=== PATIENT | female | born 1960 | race Caucasian/White ===

== ENCOUNTER → 2017-07-26 | Day surgery (SDC) | payer BC ==
[~2017-07-26] MED LIST: LIDOCAINE 2% PF Vial for OR 5 ML VIAL.; PROPOFOL 40 ML IV
[2017-07-26] MEDS: IV RINGERS,LACTATED 1000ML 1,000 ML IV (08:02)
== END | disposition home or self-care (01) ==
LOC: SURG 07:18
DX: Z12.11 Encounter for screening for malignant neoplasm of colon (principal); K64.0 First degree hemorrhoids; K57.30 Diverticulosis of large intestine without perforation or abscess without bleeding; J44.9 Chronic obstructive pulmonary disease, unspecified; E78.00 Pure hypercholesterolemia, unspecified; I10 Essential (primary) hypertension; K21.9 Gastro-esophageal reflux disease without esophagitis; F17.200 Nicotine dependence, unspecified, uncomplicated; Z90.710 Acquired absence of both cervix and uterus; Z87.442 Personal history of urinary calculi; Z87.39 Personal history of other diseases of the musculoskeletal system and connective tissue; Z88.0 Allergy status to penicillin; Z79.82 Long term (current) use of aspirin; Z98.890 Other specified postprocedural states; Z82.49 Family history of ischemic heart disease and other diseases of the circulatory system
CPT/HCPCS: 45378; J2704

== ENCOUNTER → 2020-12-22 | Outpatient (CLI) | payer BC, OTHER ==
[2017-07-26 09:10] VITALS: BP 116/72
[~2020-12-22] MED LIST changes: +ASPI-482 PO; +BUDE10.2 IH; +CRESTOR40 MG PO; +ESOM40CA PO; +FLUT1DIS5 IH; -LIDOCAINE 2% PF Vial for OR 5 ML VIAL.; +LISI-517 PO; +MULT-445 PO; +MUPI22OI2 TP; +OMEG-57 PO; -PROPOFOL 40 ML IV
== END ==
LOC: PF 07:46
PROVIDERS: ATTEND Surgery
DX: J43.9 Emphysema, unspecified (principal)
CPT/HCPCS: 94010; 94729

== ENCOUNTER → 2021-01-23 | Outpatient (CLI) | payer BC, OTHER ==
[2017-07-26 09:10] VITALS: BP 116/72
--- NOTE | 2021-01-23 10:40 | RAD ---
MR LUMBAR SPINE WO [id number] Date: 01/23/2021 9:35 AM Indication: CHRONIC LOW BACK PAIN Comparison: 09/29/2014. Technique: Multi-planar multi-weighted magnetic resonance imaging of the lumbar spine was performed w ithout intravenous contrast using the standard lumbar spine protocol. FINDINGS: The lumbar spine is normally aligned. No acute fracture. Mild multilevel degenerative disc desiccatio n and disc height loss. Bone marrow signal intensity is normal. The conus terminates at a normal level. No abnormal signal is seen within the visualized distal spina l cord. No clumping of intrathecal nerve roots. No soft tissue abnormality in the visualized abdomen or pelvis. T12-L1: No disc bulge. No facet arthropathy. No significant spinal stenosis or neural foraminal narro wing. L1-L2: No disc bulge. No facet arthropathy. No significant spinal stenosis or neural foraminal narrow ing. L2-L3: No disc bulge. No facet arthropathy. No significant spinal stenosis or neural foraminal narrow ing. L3-L4: Disc bulge. Mild facet arthropathy. No significant spinal stenosis. Mild left neural foraminal narrowing. L4-L5: Disc bulge. Mild facet arthropathy. No significant spinal stenosis. Mild lateral recess narrow ing. Mild bilateral neural foraminal narrowing. L5-S1: Disc bulge. Mild right and moderate left facet arthropathy. Synovial cyst measuring 4 mm proje cts into the left dorsal epidural space from the left facet joint. Mild spinal stenosis. No neural fo raminal narrowing. IMPRESSION: Mild lumbar spondylosis, detailed level by level above. Electronically signed by: Javed Calabrese MD (01/23/2021 10:38 AM) [id number]
== END ==
LOC: MRI 10:00
PROVIDERS: ATTEND Family Medicine
DX: M47.817 Spondylosis without myelopathy or radiculopathy, lumbosacral region (principal); M48.07 Spinal stenosis, lumbosacral region; M71.38 Other bursal cyst, other site
CPT/HCPCS: 72148

== ENCOUNTER 2021-10-17 21:23 | Observation (INO) | payer BC ==
[~2021-10-17] VITALS: Ht 157.5 cm; Wt 58.8 kg
[~2021-10-17 21:23] MED LIST changes: -LISI-517 PO; +LISI5TAB15 PO
[2021-10-17] MEDS ORDERED: OMEG1CAP6 PO (21:52)
[2021-10-17] MEDS ORDERED: BUTA1TAB23 PO (21:52)
[2021-10-17] MEDS ORDERED: ESCITALOPRAM OX10 MG PO (21:52)
[2021-10-17] MEDS ORDERED: BUDE10.2 IH (21:52)
[2021-10-17] MEDS ORDERED: ASPI-630 PO (21:52)
[2021-10-17] MEDS ORDERED: CRESTOR40 MG PO (21:52)
[2021-10-17] MEDS ORDERED: ALBU2.5V8 IH (21:52)
[2021-10-17] MEDS ORDERED: ZOLP10TA PO (21:52)
[2021-10-17] MEDS ORDERED: ASCO100T4 PO (21:52)
[2021-10-17] MEDS ORDERED: DICL20GE TP (21:52)
[2021-10-17] MEDS ORDERED: DIPH25CA58 PO (21:52)
[2021-10-17] MEDS ORDERED: AMLO-187 PO (21:52)
[2021-10-17] MEDS ORDERED: ESOM40CA PO (21:52)
[2021-10-17] MEDS ORDERED: REPATHA (21:53)
[2021-10-17] MEDS ORDERED: ACET325T9 PO (22:00)
[2021-10-17] MEDS ORDERED: diphenhydrAMINE HCL 25 MG CAPSULE PO PRN (22:10)
[2021-10-17] MEDS ORDERED: NITROGLYCERIN SUBLINGUAL 0.4 MG BOTTLE OF 25. SL PRN (22:15)
[2021-10-17] MEDS ORDERED: ZOLPIDEM 5 MG TABLET. PO PRN (22:15)
[2021-10-17] MEDS ORDERED: HEPARIN 25,000UTS/250ML PREMIX 250 ML IV PRN (22:30)
[2021-10-17] MEDS ORDERED: DICLOFENAC SODIUM 1% TOPICAL GEL 100GM TUBE. TP SCH (22:30)
[2021-10-17] MEDS ORDERED: HEPARIN for IV BOLUS 10,000 UNIT/10 ML VIAL. IV PRN (22:30)
[2021-10-17 23:00] VITALS: BP 186/75
[2021-10-17] MEDS: ACETAMINOPHEN 325 MG TABLET. PO PRN (23:04)
[2021-10-18 02:10] LABS: BASO % 0 % (0-3); EOS % 0 % (0-3); HEMOGLOBIN 12.7 g/dL (12.0-15.5); LYMPH # 1.1 x10^3/uL (1.0-4.8); LYMPH % 15 % (24-48); MEAN CORPUSCULAR HEMOGLOBIN 32 pg (25-35); MEAN CORPUSCULAR HGB CONC 34 g/dL (31-37); MEAN CORPUSCULAR VOLUME 94 fL (79-100); MONO # 0.1 x10^3/uL (0.0-1.1); MONO % 2 % (0-9); NEUT # 5.9 x10^3/uL (1.8-7.7); NEUT % 83 % (31-73); PLATELET COUNT 196 x10^3/uL (140-400); RED BLOOD COUNT 3.92 x10^6/uL (3.50-5.40); RED CELL DISTRIBUTION WIDTH 12.9 % (11.5-14.5); WHITE BLOOD COUNT 7.1 x10^3/uL (4.0-11.0)
[2021-10-18 02:30] LABS: CALCIUM 9.6 mg/dL (8.5-10.1); CREATININE 1.6 mg/dL (0.6-1.0); GFR 32.8; POTASSIUM 3.3 mmol/L (3.5-5.1)
[2021-10-18] MEDS ORDERED: DICLOFENAC SODIUM 1% TOPICAL GEL 100GM TUBE. TP PRN (02:30)
[2021-10-18 03:00] VITALS: BP 159/70
[2021-10-18 07:30] VITALS: BP 143/71
[2021-10-18] MEDS ORDERED: PANTOPRAZOLE 40 MG TABLET.DR. PO SCH (07:30)
[2021-10-18] MEDS: ALBUTEROL SULFATE 2.5 MG/3 ML NEBU. NEB SCH ×3 (07:42→16:12)
--- NOTE | 2021-10-18 07:53 | PDOC1 ---
History and Physical Date of Service: DOS: DATE: 10/18/21 TIME: 07:53 Chief Complaint: Chief Complain: Chest pain History of Present Illness: HPI: Patient is 61-year-old white female presented to outside emergency room yesterday due to shortness of breath and chest pain. Patient reports she has been having high blood pressures for about a week or so; high as in 220's systolic. Was recently taken off her lisinopril due to kidney function and her Norvasc increased from 5-10. Blood pressure here in the 150's systolic. He reports this is obviously put a lot of stress on her worrying about her blood pressure and she also recently had to place her mother in a snf causing her further stress in her life. Yesterday started having a pressure-like sensation on her chest and went to outside emergency room. What she described to me sounds more like a panic attack. However she did have a mildly elevated troponin in the outside emergency room and was thus transferred down here for cardiac evaluation. I saw the patient this morning she was resting in bed chest pain-free. Past Medical/Surgical History: PMH/PSH: COPD hypertension hyperlipidemia GERD Allergies: Allergies: Coded Allergies: Penicillins (Verified Allergy, Intermediate, Hives, 07/26/17) Family History: Family History: Hypertension Social History: Social History: Daily tobacco smoker. Occasional alcohol use no drug use Current Medications: Current Medications Current Medications Acetaminophen (Tylenol) 650 mg PRN Q4HRS PRN PO MILD PAIN / TEMP > 100.3'F Last administered on 10/17/21at 23:04; Start 10/17/21 at 22:00 Amlodipine Besylate (Norvasc) 10 mg DAILY PO ; Start 10/18/21 at 09:00 Aspirin (Ecotrin) 81 mg DAILY08 PO ; Start 10/18/21 at 08:00 Diclofenac Sodium (Voltaren) 1 stephanie Q4HRS W/A TP Last administered on 10/17/21at 23:04; Start 10/17/21 at 22:30; Stop 10/18/21 at 02:32; Status DC Diphenhydramine HCl (Benadryl) 25 mg PRN QID PRN PO ITCHING; Start 10/17/21 at 22:10 Ascorbic Acid (Vitamin C) 500 mg DAILY PO ; Start 10/18/21 at 09:00 Albuterol Sulfate (Ventolin Neb Soln) 2.5 mg RTQID NEB Last administered on 10/18/21at 07:42; Start 10/18/21 at 08:00 Citalopram Hydrobromide (CeleXA) 20 mg DAILY PO ; Start 10/18/21 at 09:00 Pantoprazole Sodium (Protonix) 40 mg DAILYAC PO Last administered on 10/18/21at 06:09; Start 10/18/21 at 07:30 Atorvastatin Calcium (Lipitor) 80 mg DAILY PO ; Start 10/18/21 at 09:00 Zolpidem Tartrate (Ambien) 5 mg PRN QHS PRN PO INSOMNIA Last administered on 10/17/21at 23:04; Start 10/17/21 at 22:15 Nitroglycerin (Nitrostat) 0.4 mg PRN Q5MIN PRN SL CHEST PAIN; Start 10/17/21 at 22:15 Budesonide (Pulmicort) 0.5 mg RTBID NEB ; Start 10/18/21 at 08:00 Heparin Sodium/ Dextrose 250 ml @ 7.056 mls/ hr CONT PRN IV PER PROTOCOL; Start 10/17/21 at 22:30 Heparin Sodium (Porcine) (Heparin Sodium) 1,450 unit PRN Q6HRS PRN IV FOR UFH LEVEL LESS THAN 0.2; Start 10/17/21 at 22:30 Amlodipine Besylate (Norvasc) 10 mg 1X ONCE PO Last administered on 10/17/21at 23:25; Start 10/17/21 at 23:30; Stop 10/17/21 at 23:31; Status DC Diclofenac Sodium (Voltaren) 1 stephanie PRN Q4HRS PRN TP ARTHRITIS PAIN; Start 10/18/21 at 02:30 Active Scripts Active Reported Tylenol (Acetaminophen) 325 Mg Tablet 2 Tab PO PRN Q4HRS [REPATHA iNJECTION] 1 Q2WKS Ambien (Zolpidem Tartrate) 10 Mg Tablet 10 Mg PO HS PRN Benadryl (Diphenhydramine Hcl) 25 Mg Capsule 1 Cap PO QID 30 Days Amlodipine Besylate 10 Mg Tablet 10 Mg PO DAILY Voltaren Arthritis Pain (Diclofenac Sodium) 20 Gm Gel..gram. 1 Stephanie TP Q4HRS PRN Crestor (Rosuvastatin Calcium) 40 Mg Tablet 20 Tab PO DAILY Proair Hfa Inhaler (Albuterol Sulfate) 8.5 Gm Hfa.aer.ad 2 Puff IH PRN Q4-6HRS PRN 21 Days Fish Oil 1,000 Mg Capsule ([place]-3 Fatty Acids/Fish Oil) 1 Each Capsule 1 Each PO DAILY Nexium Capsule (Esomeprazole Magnesium) 40 Mg Capsule.dr 40 Mg PO DAILYAC Escitalopram Oxalate 10 Mg Tablet 1 Tab PO DAILY Nvwbjt-Boxlkpsh-Wfqk 50-325-40 (Butalb/Acetaminophen/Caffeine) Unknown Strength Tablet Unknown Dose PO Q4HRS PRN Symbicort 160-4.5 Mcg Inhaler (Budesonide/Formoterol Fumarate) 10.2 Gm Hfa.aer.ad 2 Puff IH BID Vitamin C (Ascorbic Acid) 100 Mg Tablet 1 Tab PO DAILY 30 Days Symbicort 160-4.5 Mcg Inhaler (Budesonide/Formoterol Fumarate) 10.2 Gm Hfa.aer.ad 2 Puff IH BID Multivitamins (Multivitamin) 1 Each Tablet 1 Tab PO DAILY Fish Oil + D3 Softgel ([place]-3S/Dha/Epa/Fish Oil/D3) 1 Each Capsule 1 Each PO Aspir 81 (Aspirin) 81 Mg Tablet. 1 Tab PO DAILY Advair 500-50 Diskus (Fluticasone/Salmeterol) 1 Each Disk.w.dev 1 Puff IH BID Nexium Capsule (Esomeprazole Magnesium) 40 Mg Capsule. 1 Cap PO DAILY ROS: Review of Systems Review of System Unless noted in HPI 14 point review systems is negative Physical Exam: Vital Signs: Vital Signs Date Time Temp Pulse Resp B/P (MAP) Pulse Ox O2 Delivery O2 Flow Rate FiO2 10/18/21 07:42 97 Room Air 10/18/21 03:00 98.5 69 18 159/70 (99) 98.5 Physcial Exam: GEN: No apparent distress. Alert and oriented HEENT: Normal cephalic, atraumatic, external auditory canals are patent EYES: Extraocular muscles are intact, pupil are equally round and reactive to light and accommodation MUSCULOSKELETAL: Well developed , well nourished, good range of motion ENDOCRINE: No thyromegaly was palpated LYMPHATICS: No cervical chain or axillary nodes were noted HEMATOPOIETIC: No bruising NECK: Supple, no JVD, no thyromegaly was noted LUNGS: Clear to auscultation in all lung hester without rhonchi or wheezing HEART: RRR, S!, S2 present. Peripheral pulses intact, no obvious murmurs noted ABDOMEN: Soft, nontender. Positive bowel sounds, no organomegaly, normal bowel sounds EXTREMITIES: Without clubbing, cyanosis, or edema. Pedal pulses intact. Negative Homans sign NEUROLOGIC: Normal speech and tone. A&O x 3, moves all extremities, no obvious focal deficits PSYCHIATRIC: Normal affect, normal mood. Stable SKIN: No ulcerations or rashes, good skin turgor, no jaundice VASCULAR: Good capillary refill, neurovascular bundle appears to be intact Labs: Labs: Laboratory Tests Test 10/18/21 01:50 White Blood Count 7.1 x10^3/uL (4.0-11.0) Red Blood Count 3.92 x10^6/uL (3.50-5.40) Hemoglobin 12.7 g/dL (12.0-15.5) Hematocrit 37.0 % (36.0-47.0) Mean Corpuscular Volume 94 fL (79-100) Mean Corpuscular Hemoglobin 32 pg (25-35) Mean Corpuscular Hemoglobin Concent 34 g/dL (31-37) Red Cell Distribution Width 12.9 % (11.5-14.5) Platelet Count 196 x10^3/uL (140-400) Neutrophils (%) (Auto) 83 % (31-73) Lymphocytes (%) (Auto) 15 % (24-48) Monocytes (%) (Auto) 2 % (0-9) Eosinophils (%) (Auto) 0 % (0-3) Basophils (%) (Auto) 0 % (0-3) Neutrophils # (Auto) 5.9 x10^3/uL (1.8-7.7) Lymphocytes # (Auto) 1.1 x10^3/uL (1.0-4.8) Monocytes # (Auto) 0.1 x10^3/uL (0.0-1.1) Eosinophils # (Auto) 0.0 x10^3/uL (0.0-0.7) Basophils # (Auto) 0.0 x10^3/uL (0.0-0.2) Heparin Anti-Xa Act, Unfractionated 0.36 IU/mL (0.30-0.70) Sodium Level 135 mmol/L (136-145) Potassium Level 3.3 mmol/L (3.5-5.1) Chloride Level 98 mmol/L (98-107) Carbon Dioxide Level 24 mmol/L (21-32) Anion Gap 13 (6-14) Blood Urea Nitrogen 32 mg/dL (7-20) Creatinine 1.6 mg/dL (0.6-1.0) Estimated GFR (Cockcroft-Gault) 32.8 Glucose Level 146 mg/dL (70-99) Calcium Level 9.6 mg/dL (8.5-10.1) Creatine Kinase 229 U/L (26-192) Troponin I High Sensitivity 67 ng/L (4-50) Laboratory Tests Test 10/18/21 01:50 White Blood Count 7.1 x10^3/uL (4.0-11.0) Red Blood Count 3.92 x10^6/uL (3.50-5.40) Hemoglobin 12.7 g/dL (12.0-15.5) Hematocrit 37.0 % (36.0-47.0) Mean Corpuscular Volume 94 fL (79-100) Mean Corpuscular Hemoglobin 32 pg (25-35) Mean Corpuscular Hemoglobin Concent 34 g/dL (31-37) Red Cell Distribution Width 12.9 % (11.5-14.5) Platelet Count 196 x10^3/uL (140-400) Neutrophils (%) (Auto) 83 % (31-73) Lymphocytes (%) (Auto) 15 % (24-48) Monocytes (%) (Auto) 2 % (0-9) Eosinophils (%) (Auto) 0 % (0-3) Basophils (%) (Auto) 0 % (0-3) Neutrophils # (Auto) 5.9 x10^3/uL (1.8-7.7) Lymphocytes # (Auto) 1.1 x10^3/uL (1.0-4.8) Monocytes # (Auto) 0.1 x10^3/uL (0.0-1.1) Eosinophils # (Auto) 0.0 x10^3/uL (0.0-0.7) Basophils # (Auto) 0.0 x10^3/uL (0.0-0.2) Heparin Anti-Xa Act, Unfractionated 0.36 IU/mL (0.30-0.70) Sodium Level 135 mmol/L (136-145) Potassium Level 3.3 mmol/L (3.5-5.1) Chloride Level 98 mmol/L (98-107) Carbon Dioxide Level 24 mmol/L (21-32) Anion Gap 13 (6-14) Blood Urea Nitrogen 32 mg/dL (7-20) Creatinine 1.6 mg/dL (0.6-1.0) Estimated GFR (Cockcroft-Gault) 32.8 Glucose Level 146 mg/dL (70-99) Calcium Level 9.6 mg/dL (8.5-10.1) Creatine Kinase 229 U/L (26-192) Troponin I High Sensitivity 67 ng/L (4-50) Assessment/Plan Assessment/Plan Chest pain secondary to panic attack versus ACS. History COPD hypertension hyperlipidemia GERD -Patient presented with 1 day history of chest pain. Has been having some shortness of breath for the past few days. -Troponin mildly elevated outside facility to 74 she was transferred down; imaging done there showed normal chest x-ray -Continue to trend troponins. -Heparin drip started per cardiology who are also consulted -Cardiac diet -DVT prophylaxis will be heparin drip -home meds resumed as indicated Justifications for Admission Other Justification OBED LUNSFORD MD Oct 18, 2021 07:53
[2021-10-18] MEDS ORDERED: BUDESONIDE 0.5 MG/2 ML NEBU. NEB SCH (08:00)
[2021-10-18] MEDS ORDERED: POTASSIUM CHLORIDE 20 MEQ TABLET.ER. PO ONE (08:00)
[2021-10-18] MEDS ORDERED: ASPIRIN ENTERIC COATED 81 MG TABLET.DR. PO SCH (08:00)
[2021-10-18] MEDS ORDERED: ASCORBIC ACID 500 MG TABLET PO SCH (09:00)
[2021-10-18] MEDS ORDERED: ATORVASTATIN CALCIUM 40 MG TABLET. PO SCH (09:00)
[2021-10-18] MEDS ORDERED: CITALOPRAM 20 MG TABLET. PO SCH (09:00)
[2021-10-18] MEDS: ACETAMINOPHEN 325 MG TABLET. PO PRN (09:29)
--- NOTE | 2021-10-18 09:56 | PDOC2 ---
GARETH MERRITT CAROLYN 10/18/21 0956: CARDIAC CONSULT DATE OF CONSULT Date of Consult DATE: 10/18/21 TIME: 09:50 REASON FOR CONSULT Reason for Consult: Chest pain REFERRING PHYSICIAN Referring Physician: Dr. Phillip SOURCE Source: Chart review, Patient HISTORY OF PRESENT ILLNESS HISTORY OF PRESENT ILLNESS This is a 61 yo female who presented secondary to chest pain. Patient reports increased stress at home. Mother with dementia was recently put in long-term. She has also been worried about her blood pressure as it has been elevated. Her cheese tester took her off her lisinopril last due to worsening renal function. . Reports some aching in her upper back over the weekend. Blood pressure was elevated all weekend. Called her provider on Saturday and her amlodipine was increased to 10mg daily. Yesterday while at work, began experienced pressure in her central chest. Merrill short of breath and somewhat weak. Took blood pressure and was noted in 220 range. EMS was called. She denies any associated dizziness, diaphoresis, or palpitations. Pressure did not radiate and resolved in the ED. Has not returned and is feeling well this morning. Patient thiks she was having a panic attack due to all the worrying and stress she has had recently. Patient has a history of PAD s/p bilateral DISTRICT CUSTOMS DIRECTOR/stent to bilateral iliac arteries. No prior history of CAD. Reports normal stress and echo about 2 years ago. [facility] PAST MEDICAL HISTORY Cardiovascular: HTN, Hyperlipidemia, Other (PAD) Pulmonary: Asthma, COPD GI: Diverticulosis, GERD Heme/Onc: Cancer (cervical ) Musculoskeletal: Osteoarthritis Renal/: Chronic renal insuff PAST SURGICAL HISTORY Past Surgical History: Hysterectomy, Other (bilateral knee surgery ) FAMILY HISTORY Family History: Diabetes, Heart Disease SOCIAL HISTORY Smoke: <1 pack per day ALCOHOL: occassional Drugs: None Lives: Alone CURRENT MEDICATIONS CURRENT MEDICATIONS Current Medications Medications (Trade) Dose Ordered Sig/Sampson Route PRN Reason Start Time Stop Time Status Last Admin Dose Admin Acetaminophen (Tylenol) 650 mg PRN Q4HRS PRN PO MILD PAIN / TEMP > 100.3'F 10/17/21 22:00 10/18/21 09:29 Amlodipine Besylate (Norvasc) 10 mg DAILY PO 10/18/21 09:00 10/18/21 09:30 Diclofenac Sodium (Voltaren) 1 dangelo Q4HRS W/A TP 10/17/21 22:30 10/18/21 02:32 DC 10/17/21 23:04 Ascorbic Acid (Vitamin C) 500 mg DAILY PO 10/18/21 09:00 10/18/21 09:30 Albuterol Sulfate (Ventolin Neb Soln) 2.5 mg RTQID NEB 10/18/21 08:00 10/18/21 07:42 Citalopram Hydrobromide (CeleXA) 20 mg DAILY PO 10/18/21 09:00 10/18/21 09:30 Pantoprazole Sodium (Protonix) 40 mg DAILYAC PO 10/18/21 07:30 10/18/21 06:09 Atorvastatin Calcium (Lipitor) 80 mg DAILY PO 10/18/21 09:00 10/18/21 09:30 Zolpidem Tartrate (Ambien) 5 mg PRN QHS PRN PO INSOMNIA 10/17/21 22:15 10/17/21 23:04 Amlodipine Besylate (Norvasc) 10 mg 1X ONCE PO 10/17/21 23:30 10/17/21 23:31 DC 10/17/21 23:25 ALLERGIES ALLERGIES: Coded Allergies: Penicillins (Verified Allergy, Intermediate, Hives, 07/26/17) ROS Review of System 14 point ROS conducted with pertinent positives noted above in HPI PHYSICAL EXAM General: Alert, Oriented X3, Cooperative, No acute distress HEENT: Atraumatic Lungs: Clear to auscultation Heart: Regular rate Abdomen: Soft, No tenderness Extremities: No edema Skin: No significant lesion Neuro: Normal speech, Sensation intact Psych/Mental Status: Mental status NL, Mood NL MUSCULOSKELETAL: No deformity VITALS/I&O VITALS/I&O: Vital Signs Date Time Temp Pulse Resp B/P (MAP) Pulse Ox O2 Delivery O2 Flow Rate FiO2 10/18/21 09:30 75 143/71 10/18/21 07:42 97 Room Air 10/18/21 07:30 98.2 16 98.2 I & O 0 10/17/21 10/17/21 10/18/21 14:59 22:59 06:59 Intake Total 120 ml Balance 120 ml LABS Lab: Laboratory Tests Test 10/18/21 01:50 10/18/21 08:10 White Blood Count 7.1 x10^3/uL (4.0-11.0) Red Blood Count 3.92 x10^6/uL (3.50-5.40) Hemoglobin 12.7 g/dL (12.0-15.5) Hematocrit 37.0 % (36.0-47.0) Mean Corpuscular Volume 94 fL (79-100) Mean Corpuscular Hemoglobin 32 pg (25-35) Mean Corpuscular Hemoglobin Concent 34 g/dL (31-37) Red Cell Distribution Width 12.9 % (11.5-14.5) Platelet Count 196 x10^3/uL (140-400) Neutrophils (%) (Auto) 83 % (31-73) H Lymphocytes (%) (Auto) 15 % (24-48) L Monocytes (%) (Auto) 2 % (0-9) Eosinophils (%) (Auto) 0 % (0-3) Basophils (%) (Auto) 0 % (0-3) Neutrophils # (Auto) 5.9 x10^3/uL (1.8-7.7) Lymphocytes # (Auto) 1.1 x10^3/uL (1.0-4.8) Monocytes # (Auto) 0.1 x10^3/uL (0.0-1.1) Eosinophils # (Auto) 0.0 x10^3/uL (0.0-0.7) Basophils # (Auto) 0.0 x10^3/uL (0.0-0.2) Heparin Anti-Xa Act, Unfractionated 0.36 IU/mL (0.30-0.70) 0.37 IU/mL (0.30-0.70) Sodium Level 135 mmol/L (136-145) L Potassium Level 3.3 mmol/L (3.5-5.1) L Chloride Level 98 mmol/L (98-107) Carbon Dioxide Level 24 mmol/L (21-32) Anion Gap 13 (6-14) Blood Urea Nitrogen 32 mg/dL (7-20) H Creatinine 1.6 mg/dL (0.6-1.0) H Estimated GFR (Cockcroft-Gault) 32.8 Glucose Level 146 mg/dL (70-99) H Calcium Level 9.6 mg/dL (8.5-10.1) Creatine Kinase 229 U/L (26-192) H Troponin I High Sensitivity 67 ng/L (4-50) H 44 ng/L (4-50) Laboratory Tests 10/18/21 01:50 Laboratory Tests 10/18/21 01:50 ASSESSMENT/PLAN ASSESSMENT/PLAN 1. Chest pain, mixed features. Possibly inducted by #2. High sensitivity trop peak 74. EKG with anterior t-wave inversions. No previous for comparison. On heparin gtt 2. Hypertensive urgency; now improved. recently taken off lisinopril due to worsening renal function 3. Hyperlipidemia 4. PAD s/p DISTRICT CUSTOMS DIRECTOR/stent to bilateral iliac arteries 5. CKD 6. COPD, asthma; clinically stable 7. GERD 8. Hypokalemia; replaced Recommendations ASA,statin Secondary prevention May discontinue heparin gtt Home medications resumed; titrate therapy as warranted Lipids Echocardiogram Probably outpatient ischemic evaluation- patient would like this conducted through primiary cardiology team through [facility] BETH ARRIETA MD 10/18/21 1718: CARDIAC CONSULT ASSESSMENT/PLAN ASSESSMENT/PLAN Patient seen and examined. Agree with COMBINATION MACHINE TOOL SETTER's assessment and plan. Chest pain with atypical features. Slight troponin elevation probably demand ischemia. Blood pressure better controlled since admission. Agree with stopping heparin infusion. Check 2D echo to assess LV systolic function and rule out wall motion abnormalities. Consider ischemic evaluation as an outpatient with primary odd job laborer PAD clinically stable Thank you for your consultation GARETH MERRITT APRN Oct 18, 2021 09:56 BETH ARRIETA MD Oct 18, 2021 17:18
[2021-10-18 10:25] LABS: MAGNESIUM 2.1 mg/dL (1.8-2.4)
[2021-10-18 10:27] LABS: CHOLESTEROL/HDL RATIO 1.6
[2021-10-18 11:23] VITALS: BP 176/78
[2021-10-18 15:15] VITALS: BP 172/74
[2021-10-18] MEDS ORDERED: hydrALAZINE 20 MG/ML VIAL. IVP PRN (16:00)
[2021-10-18 16:30] VITALS: BP 164/70
--- NOTE | 2021-10-18 17:34 | CARD ---
MR#: [id number] Date of Study: 10/18/2021 Ordering Physician: GARETH MERRITT, Referring Physician: GARETH MERRITT, Tech: Poonam Fuller [facility] APPROVED REPORT EXAM: Two-dimensional and M-mode echocardiogram with Doppler and color Doppler. Other Information Quality : AverageHR: 91bpm Rhythm : NSR INDICATION Dyspnea 2D DIMENSIONS RVDd2.4 (2.9-3.5cm)Left Atrium(2D)3.2 (1.6-4.0cm) IVSd1.0 (0.7-1.1cm)Aortic Root(2D)2.4 (2.0-3.7cm) LVDd4.3 (3.9-5.9cm)LVOT Diameter1.9 (1.8-2.4cm) PWd0.8 (0.7-1.1cm)LVDs3.0 (2.5-4.0cm) FS (%) 30.2 %SV49.0 ml LVEF(%)57.7 (>50%) Aortic Valve AoV Peak Brett.162.9cm/sAoV VTI27.9cm AO Peak GR.10.6mmHgLVOT Peak Brett.112.1cm/s AO Mean GR.4mmHgAVA (VMAX)1.92cm2 Mitral Valve MV E Gclxwxnq68.6cm/sMV DECEL [id number] MV A Owppwoyl182.8cm/sE/A Ratio0.8 LEFT VENTRICLE The left ventricle is normal size. There is normal left ventricular wall thickness. The left ventricu lar systolic function is normal and the ejection fraction is within normal range. Estimated ejection fraction 60%. There is normal LV segmental wall motion. Transmitral Doppler flow pattern is Grade I-a bnormal relaxation pattern. RIGHT VENTRICLE The right ventricle is normal size. There is normal right ventricular wall thickness. The right ventr icular systolic function is normal. ATRIA The left atrium size is normal. The right atrium size is normal. The interatrial septum is intact wit h no evidence for an atrial septal defect or patent foramen ovale as noted on 2-D or Doppler imaging. AORTIC VALVE The aortic valve is normal in structure and function. Doppler and Color Flow revealed no significant aortic regurgitation. There is no significant aortic valvular stenosis. MITRAL VALVE The mitral valve is normal in structure and function. There is no evidence of mitral valve prolapse. There is no mitral valve stenosis. Doppler and Color-flow revealed trace mitral regurgitation. TRICUSPID VALVE The tricuspid valve is normal in structure and function. Doppler and Color Flow revealed no tricuspid valve regurgitation noted. There is no tricuspid valve stenosis. PULMONIC VALVE Doppler and Color Flow revealed no pulmonic valvular regurgitation. There is no pulmonic valvular ed nosis. GREAT VESSELS The aortic root is normal in size. The ascending aorta is normal in size. The IVC is normal in size a nd collapses >50% with inspiration. PERICARDIAL EFFUSION There is no evidence of significant pericardial effusion. Critical Notification Critical Value: No <Conclusion> The left ventricular systolic function is normal and the ejection fraction is within normal range. E stimated ejection fraction 60%. There is normal LV segmental wall motion. Signed by : Joseph Ortiz, Electronically Approved : 10/18/2021 17:34:11
[2021-10-18] MEDS ORDERED: HYDR-2868 PO (17:43)
--- NOTE | 2021-10-18 18:56 | NUR ---
Discharge Note: Patient was discharged home with self care. Patients IV was discontinued without any complications per RN. Patient was given discharge summary/instructions, follow-ups, and educational material. Patients new prescriptions were sent to patients preferred pharmacy. Patient was taken down to the main entrance via wheelchair with all personal belongings accompanied by this RN, where patients aunt was waiting for her to take her home.
[2021-10-18] MEDS ORDERED: hydrALAZINE 25 MG TABLET PO SCH (21:00)
== END 2021-10-18 19:03 | disposition home or self-care (01) ==
LOC: 2 NORTH 21:23
PROVIDERS: ADMIT Internal Medicine; ATTEND Internal Medicine
DX: R07.89 Other chest pain (principal); I16.0 Hypertensive urgency; I12.9 Hypertensive chronic kidney disease with stage 1 through stage 4 chronic kidney disease, or unspecified chronic kidney disease; N18.9 Chronic kidney disease, unspecified; I73.9 Peripheral vascular disease, unspecified; E78.5 Hyperlipidemia, unspecified; E87.6 Hypokalemia; J44.9 Chronic obstructive pulmonary disease, unspecified; K21.9 Gastro-esophageal reflux disease without esophagitis; F41.0 Panic disorder [episodic paroxysmal anxiety]; R77.8 Other specified abnormalities of plasma proteins; M19.90 Unspecified osteoarthritis, unspecified site; F17.210 Nicotine dependence, cigarettes, uncomplicated; Z90.710 Acquired absence of both cervix and uterus; Z98.62 Peripheral vascular angioplasty status; Z79.899 Other long term (current) drug therapy; Z98.890 Other specified postprocedural states; Z79.82 Long term (current) use of aspirin
CPT/HCPCS: 36415; 80048; 80061; 82550; 83735; 84443; 84484; 85025; 85520; 93306; 94640; 96374; 99406; G0378; G0379; J0360; J7613; C8929